=== PATIENT | female | born 1960 | race Caucasian/White ===

== ENCOUNTER 2017-11-28 15:59 | Inpatient (IN) ==
[2017-11-28] MEDS ORDERED: GLUCAGON 1 MG VIAL IM PRN (17:33)
[2017-11-28] MEDS ORDERED: DEXTROSE 50% 25 GM/50 ML VIAL IV PRN (17:33)
[2017-11-28] MEDS ORDERED: ALBUTEROL/IPRATROPIUM 3 ML NEB RESP TX PRN (18:20)
[2017-11-28] MEDS: ALBUTEROL/IPRATROPIUM 3 ML NEB RESP TX SCH (19:25)
[2017-11-28 20:44] LABS: % Iron Saturation 6.9 % (18-50)
[2017-11-28 20:46] LABS: Free T4 (Free Thyroxine) 1.16 NG/DL (0.76-1.46)
[2017-11-28 20:56] LABS: Folate 17.7 NG/ML (5.4-24.0)
[2017-11-28] MEDS: MEROPENEM 1,000 MG in SYRINGE 1 EACH IV SCH (21:47)
[2017-11-28] MEDS: INSULIN REGULAR 100 UNIT/ML SUBCUT SCH (21:48)
[2017-11-28] MEDS: FUROSEMIDE 20 MG/2 ML VIAL IV SCH (21:53)
[2017-11-28] MEDS: DEXTROSE 5% NACL 0.45% 1,000 ML IV SCH (23:02)
[2017-11-29 02:53] LABS: Apearance,Urine CLEAR (Clear); Bilirubin,Urine Negative (Negative); Blood, Urine Moderate mg/dL (Negative); Glucose,Urine (UA) Negative (Negative); Hyaline Casts,Urine 3 /LPF (0-3); Ketones,Urine Negative (Negative); Nitrite,Urine Negative (Negative); Protein,Urine Negative; RBC,Urine 3 /HPF (0-4); Squamous Epithelial Cell,Urine Occasional /HPF (0-10); Urine Color Yellow (Yellow); Urine Specific Gravity 1.005 (1.001-1.035); WBC,Urine 3 /HPF (0-6)
[2017-11-29 06:14] LABS: Basophils % 0.6 % (0.0-0.8); Eosinophils # 0.2 10*3/uL (0.0-0.87); Eosinophils % 4.9 % (0.00-10.9); Hematocrit 31.6 VOL% (35.7-47.0); Hemoglobin 10.6 GM/DL (12.0-16.0); Immature Granulocytes % 0.8 %; Immature Granulocytes Absolute 0.04 #; Lymphocytes # 1.5 10*3/uL (1.4-4.0); Mean Corpuscular HGB Conc 33.5 GM/DL (32-36); Mean Corpuscular Hemoglobin 30 PG (27-34); Mean Platelet Volume 11.2 FL (9.6-12.0); Monocytes # 0.5 10*3/uL (0.11-0.8); Monocytes % 9.4 % (1.7-12.7); Neutrophils # 2.6 10*3/uL (1.4-7.4); Neutrophils % 54.3 % (38.7-73.9); Platelet Count 84 T/CUMM (130-400); Red Blood Count 3.51 MC/CUMM (3.8-5.5); Red Cell Distribution Width 18.4 % (9.3-17.3); White Blood Count 4.9 T/CUMM (4-12)
[2017-11-29] MEDS: MEROPENEM 1,000 MG in SYRINGE 1 EACH IV SCH ×3 (06:25→21:22)
[2017-11-29] MEDS: FUROSEMIDE 20 MG/2 ML VIAL IV SCH ×2 (06:31→14:43)
[2017-11-29 06:44] LABS: Albumin 2.7 G/DL (3.4-5.0); Bilirubin,Total 1.2 MG/DL (0.2-1.0); Calcium 8.6 MG/DL (8.5-10.1); Osmolality,Calculated 283.1 MOS/KG (273-304); Potassium 2.6 MMOL/L (3.5-5.1); Total Protein 6.2 G/DL (6.4-8.3)
[2017-11-29 07:04] LABS: Hypochromasia 1+; Ovalocytes Slight; Platelet Estimate Decreased
[2017-11-29] MEDS: ALBUTEROL/IPRATROPIUM 3 ML NEB RESP TX SCH ×2 (08:09→19:37)
[2017-11-29] MEDS ORDERED: PROMETHAZINE 25 MG TABLET PO PRN (08:35)
[2017-11-29] MEDS ORDERED: DIAZEPAM 5 MG TABLET PO PRN (08:35)
[2017-11-29] MEDS ORDERED: oxyCODONE/ACETAMINOPHEN 5-325 MG TABLET PO PRN (08:35)
[2017-11-29] MEDS: INSULIN REGULAR 100 UNIT/ML SUBCUT SCH ×4 (08:49→21:12)
[2017-11-29] MEDS ORDERED: TRIAMTERENE/HCTZ 37.5-25 MG CAPSULE PO SCH ×2 (09:00→12:00)
[2017-11-29] MEDS ORDERED: CYANOCOBALAMIN 1000 MCG/1 ML VIAL IM SCH (09:00)
[2017-11-29] MEDS: POTASSIUM CHLORIDE 10 MEQ TABLET PO SCH ×3 (09:58→21:22)
[2017-11-29] MEDS: LACTOBACILLUS ACIDOPHILUS/BULGARICUS CAPLET PO SCH (09:58)
[2017-11-29] MEDS: MAGNESIUM CHLORIDE 64 MG TABLET PO SCH ×2 (09:58→21:22)
[2017-11-29] MEDS: COLESEVELAM 625 MG TABLET PO SCH ×3 (09:58→21:22)
[2017-11-29] MEDS: ASPIRIN EC 81 MG TABLET PO SCH (09:58)
[2017-11-29] MEDS: CHOLECALCIFEROL 1,000 UNIT TABLET PO SCH (09:58)
[2017-11-29] MEDS: PANTOPRAZOLE 40 MG TABLET PO SCH (09:58)
[2017-11-29] MEDS: OMEGA 3 ACID ETHYL ESTERS 1 GM CAPSULE PO SCH (09:59)
[2017-11-29 11:12] LABS: INR 1.2; PT Patient Result 12.4 SECS; Partial Thromboplastin Time 29.6 SECS (0-40)
[2017-11-29 12:35] LABS: Hepatitis A Ab IgM Quant 0.14 Index; Hepatitis A Ab IgM Result Negative (Negative); Hepatitis B Core IgM Quant 0.09 Index; Hepatitis B Core IgM Result Negative (Negative); Hepatitis B Surface Ag Quant 0.12 Index; Hepatitis B Surface Ag Result Negative (Negative); Hepatitis C Virus Ab Quant 0.04 Index; Hepatitis C Virus Ab Result Negative (Negative)
[2017-11-29] MEDS: LACTULOSE 20 GM/30 ML UDCUP PO SCH ×2 (14:43→21:21)
[2017-11-29] MEDS: POTASSIUM CHLORIDE 20 MEQ TABLET PO PRN ×2 (14:47→17:27)
[2017-11-29] MEDS ORDERED: FUROSEMIDE 20 MG/2 ML VIAL IV SCH (21:00)
[2017-11-29] MEDS: DEXTROSE 5% NACL 0.45% 1,000 ML IV SCH (21:20)
[2017-11-29] MEDS: GABAPENTIN 300 MG CAPSULE PO SCH (21:22)
[2017-11-29] MEDS: PARoxetine 20 MG TABLET PO SCH (21:23)
[2017-11-29] MEDS: DOXEPIN 25 MG CAPSULE PO SCH (21:25)
[2017-11-30] MEDS: POTASSIUM CHLORIDE 20 MEQ TABLET PO PRN ×2 (00:20→07:03)
[2017-11-30 06:17] LABS: Basophils % 0.6 % (0.0-0.8); Eosinophils # 0.3 10*3/uL (0.0-0.87); Eosinophils % 5.3 % (0.00-10.9); Hemoglobin 10.8 GM/DL (12.0-16.0); Immature Granulocytes % 0.6 %; Immature Granulocytes Absolute 0.03 #; Lymphocytes # 1.7 10*3/uL (1.4-4.0); Lymphocytes % 34.8 % (21.3-54.2); Mean Corpuscular HGB Conc 33.8 GM/DL (32-36); Mean Corpuscular Hemoglobin 30 PG (27-34); Mean Corpuscular Volume 88.9 FL (87-102); Mean Platelet Volume 11.2 FL (9.6-12.0); Monocytes # 0.5 10*3/uL (0.11-0.8); Monocytes % 10.3 % (1.7-12.7); Neutrophils # 2.4 10*3/uL (1.4-7.4); Neutrophils % 48.4 % (38.7-73.9); Red Cell Distribution Width 18.3 % (9.3-17.3); White Blood Count 4.9 T/CUMM (4-12)
[2017-11-30 06:24] LABS: Platelet Count 91 T/CUMM (130-400)
[2017-11-30 06:25] LABS: Calcium 8.7 MG/DL (8.5-10.1); Potassium 2.7 MMOL/L (3.5-5.1)
[2017-11-30] MEDS: MEROPENEM 1,000 MG in SYRINGE 1 EACH IV SCH ×3 (07:03→21:21)
[2017-11-30] MEDS: FUROSEMIDE 20 MG/2 ML VIAL IV SCH ×2 (07:03→08:58)
[2017-11-30 07:24] LABS: Hypochromasia 1+; Polychromasia Slight
[2017-11-30] MEDS: ALBUTEROL/IPRATROPIUM 3 ML NEB RESP TX SCH ×2 (07:35→19:26)
[2017-11-30] MEDS: LACTULOSE 20 GM/30 ML UDCUP PO SCH ×3 (08:40→21:22)
[2017-11-30] MEDS: PANTOPRAZOLE 40 MG TABLET PO SCH (08:40)
[2017-11-30] MEDS: MAGNESIUM CHLORIDE 64 MG TABLET PO SCH ×2 (08:40→21:23)
[2017-11-30] MEDS: LOSARTAN 25 MG TABLET PO SCH (08:40)
[2017-11-30] MEDS: LACTOBACILLUS ACIDOPHILUS/BULGARICUS CAPLET PO SCH (08:41)
[2017-11-30] MEDS: COLESEVELAM 625 MG TABLET PO SCH ×3 (08:41→21:24)
[2017-11-30] MEDS: POTASSIUM CHLORIDE 20 MEQ TABLET PO SCH ×3 (08:41→21:23)
[2017-11-30] MEDS: CHOLECALCIFEROL 1,000 UNIT TABLET PO SCH (08:41)
[2017-11-30] MEDS: OMEGA 3 ACID ETHYL ESTERS 1 GM CAPSULE PO SCH (08:41)
[2017-11-30] MEDS: INSULIN REGULAR 100 UNIT/ML SUBCUT SCH ×4 (08:55→21:24)
[2017-11-30] MEDS ORDERED: SPIRONOLACTONE 50 MG TABLET PO SCH (09:00)
[2017-11-30] MEDS: POTASSIUM CHLORIDE 10 MEQ TABLET PO SCH ×3 (12:29→21:23)
[2017-11-30] MEDS: DEXTROSE 5% NACL 0.45% 1,000 ML IV SCH (16:27)
[2017-11-30] MEDS: FUROSEMIDE 20 MG TABLET PO SCH (16:28)
[2017-11-30] MEDS: PARoxetine 20 MG TABLET PO SCH (21:23)
[2017-11-30] MEDS: DOXEPIN 25 MG CAPSULE PO SCH (21:23)
[2017-11-30] MEDS: GABAPENTIN 300 MG CAPSULE PO SCH (21:24)
[2017-12-01] MEDS: MEROPENEM 1,000 MG in SYRINGE 1 EACH IV SCH ×2 (06:13→15:41)
[2017-12-01] MEDS: DEXTROSE 5% NACL 0.45% 1,000 ML IV SCH (06:24)
[2017-12-01 06:40] LABS: Basophils % 0.4 % (0.0-0.8); Eosinophils # 0.3 10*3/uL (0.0-0.87); Eosinophils % 5.4 % (0.00-10.9); Hematocrit 35.1 VOL% (35.7-47.0); Hemoglobin 11.1 GM/DL (12.0-16.0); Immature Granulocytes Absolute 0.05 #; Lymphocytes # 1.6 10*3/uL (1.4-4.0); Mean Corpuscular HGB Conc 31.6 GM/DL (32-36); Mean Corpuscular Hemoglobin 29 PG (27-34); Mean Corpuscular Volume 92.6 FL (87-102); Mean Platelet Volume 10.9 FL (9.6-12.0); Monocytes # 0.4 10*3/uL (0.11-0.8); Monocytes % 8.9 % (1.7-12.7); Neutrophils # 2.5 10*3/uL (1.4-7.4); Neutrophils % 51.3 % (38.7-73.9); Platelet Count 92 T/CUMM (130-400); Red Blood Count 3.79 MC/CUMM (3.8-5.5); Red Cell Distribution Width 18.6 % (9.3-17.3); White Blood Count 4.8 T/CUMM (4-12)
[2017-12-01 06:57] LABS: Calcium 8.7 MG/DL (8.5-10.1); Osmolality,Calculated 287.7 MOS/KG (273-304); Potassium 3.9 MMOL/L (3.5-5.1)
[2017-12-01] MEDS: ALBUTEROL/IPRATROPIUM 3 ML NEB RESP TX SCH ×2 (07:07→19:01)
[2017-12-01] MEDS: INSULIN REGULAR 100 UNIT/ML SUBCUT SCH ×4 (07:24→20:33)
[2017-12-01] MEDS: LOSARTAN 25 MG TABLET PO SCH ×2 (07:48→10:56)
[2017-12-01] MEDS: MAGNESIUM CHLORIDE 64 MG TABLET PO SCH ×3 (07:48→20:31)
[2017-12-01] MEDS: LACTULOSE 20 GM/30 ML UDCUP PO SCH ×4 (07:48→20:31)
[2017-12-01] MEDS: SPIRONOLACTONE 50 MG TABLET PO SCH ×2 (07:49→10:55)
[2017-12-01] MEDS: POTASSIUM CHLORIDE 10 MEQ TABLET PO SCH ×4 (07:49→20:31)
[2017-12-01] MEDS: CHOLECALCIFEROL 1,000 UNIT TABLET PO SCH ×2 (07:49→10:56)
[2017-12-01] MEDS: LACTOBACILLUS ACIDOPHILUS/BULGARICUS CAPLET PO SCH ×2 (07:49→10:55)
[2017-12-01] MEDS: FUROSEMIDE 20 MG TABLET PO SCH ×2 (07:49→15:51)
[2017-12-01] MEDS: OMEGA 3 ACID ETHYL ESTERS 1 GM CAPSULE PO SCH ×2 (07:49→10:56)
[2017-12-01] MEDS: COLESEVELAM 625 MG TABLET PO SCH ×4 (07:50→20:30)
[2017-12-01] MEDS: PANTOPRAZOLE 40 MG TABLET PO SCH ×2 (07:50→10:56)
[2017-12-01 09:19] LABS: Hypochromasia 1+; Polychromasia Slight
[2017-12-01] MEDS: LEVOFLOXACIN INJ 500 MG in PREMIX 1 EACH IV SCH (15:50)
[2017-12-01] MEDS: DOXEPIN 25 MG CAPSULE PO SCH (20:30)
[2017-12-01] MEDS: GABAPENTIN 300 MG CAPSULE PO SCH (20:31)
[2017-12-01] MEDS: PARoxetine 20 MG TABLET PO SCH (20:31)
[2017-12-02] MEDS: DEXTROSE 5% NACL 0.45% 1,000 ML IV SCH ×2 (05:28→18:31)
[2017-12-02 05:45] LABS: Basophils # 0.1 10*3/uL (0.0-0.2); Basophils % 0.8 % (0.0-0.8); Eosinophils # 0.4 10*3/uL (0.0-0.87); Eosinophils % 5.5 % (0.00-10.9); Hematocrit 35.4 VOL% (35.7-47.0); Hemoglobin 11.1 GM/DL (12.0-16.0); Immature Granulocytes % 0.9 %; Immature Granulocytes Absolute 0.06 #; Lymphocytes # 2.3 10*3/uL (1.4-4.0); Lymphocytes % 35.4 % (21.3-54.2); Mean Corpuscular HGB Conc 31.4 GM/DL (32-36); Mean Corpuscular Hemoglobin 30 PG (27-34); Mean Corpuscular Volume 96.5 FL (87-102); Mean Platelet Volume 10.9 FL (9.6-12.0); Monocytes # 0.5 10*3/uL (0.11-0.8); Monocytes % 7.9 % (1.7-12.7); Neutrophils # 3.2 10*3/uL (1.4-7.4); Neutrophils % 49.5 % (38.7-73.9); Red Blood Count 3.67 MC/CUMM (3.8-5.5); Red Cell Distribution Width 18.6 % (9.3-17.3); White Blood Count 6.4 T/CUMM (4-12)
[2017-12-02 05:51] LABS: Platelet Count 99 T/CUMM (130-400)
[2017-12-02 06:05] LABS: Hypochromasia 1+; Microcytosis 1+
[2017-12-02 06:06] LABS: Platelet Estimate Decreased
[2017-12-02 06:14] LABS: Calcium 8.2 MG/DL (8.5-10.1); Potassium 3.9 MMOL/L (3.5-5.1)
[2017-12-02] MEDS: ALBUTEROL/IPRATROPIUM 3 ML NEB RESP TX SCH ×2 (07:28→20:10)
[2017-12-02] MEDS: INSULIN REGULAR 100 UNIT/ML SUBCUT SCH ×4 (08:07→21:05)
[2017-12-02] MEDS ORDERED: LOSARTAN 50 MG TABLET PO SCH (09:22)
[2017-12-02] MEDS: CHOLECALCIFEROL 1,000 UNIT TABLET PO SCH (09:31)
[2017-12-02] MEDS: LACTOBACILLUS ACIDOPHILUS/BULGARICUS CAPLET PO SCH (09:31)
[2017-12-02] MEDS: MAGNESIUM CHLORIDE 64 MG TABLET PO SCH ×2 (09:31→20:57)
[2017-12-02] MEDS: PANTOPRAZOLE 40 MG TABLET PO SCH (09:31)
[2017-12-02] MEDS: POTASSIUM CHLORIDE 10 MEQ TABLET PO SCH ×3 (09:31→20:57)
[2017-12-02] MEDS: OMEGA 3 ACID ETHYL ESTERS 1 GM CAPSULE PO SCH (09:31)
[2017-12-02] MEDS: ASPIRIN EC 81 MG TABLET PO SCH (09:32)
[2017-12-02] MEDS: SPIRONOLACTONE 50 MG TABLET PO SCH (09:32)
[2017-12-02] MEDS: COLESEVELAM 625 MG TABLET PO SCH ×3 (09:32→20:56)
[2017-12-02] MEDS: FUROSEMIDE 20 MG TABLET PO SCH ×2 (09:32→16:43)
[2017-12-02] MEDS: LACTULOSE 20 GM/30 ML UDCUP PO SCH ×3 (09:33→20:57)
[2017-12-02] MEDS: LOSARTAN 25 MG TABLET PO SCH (11:03)
[2017-12-02] MEDS: LEVOFLOXACIN INJ 500 MG in PREMIX 1 EACH IV SCH (16:40)
[2017-12-02] MEDS: DOXEPIN 25 MG CAPSULE PO SCH (20:57)
[2017-12-02] MEDS: PARoxetine 20 MG TABLET PO SCH (20:57)
[2017-12-02] MEDS: GABAPENTIN 300 MG CAPSULE PO SCH (20:57)
[2017-12-03] MEDS: INSULIN REGULAR 100 UNIT/ML SUBCUT SCH ×2 (07:49→13:17)
[2017-12-03] MEDS: ALBUTEROL/IPRATROPIUM 3 ML NEB RESP TX SCH (07:52)
[2017-12-03] MEDS: CHOLECALCIFEROL 1,000 UNIT TABLET PO SCH (08:57)
[2017-12-03] MEDS: LACTULOSE 20 GM/30 ML UDCUP PO SCH (08:57)
[2017-12-03] MEDS: OMEGA 3 ACID ETHYL ESTERS 1 GM CAPSULE PO SCH (08:57)
[2017-12-03] MEDS: ASPIRIN EC 81 MG TABLET PO SCH (08:58)
[2017-12-03] MEDS: PANTOPRAZOLE 40 MG TABLET PO SCH (08:58)
[2017-12-03] MEDS: COLESEVELAM 625 MG TABLET PO SCH (08:58)
[2017-12-03] MEDS: POTASSIUM CHLORIDE 10 MEQ TABLET PO SCH (08:58)
[2017-12-03] MEDS: FUROSEMIDE 20 MG TABLET PO SCH (08:58)
[2017-12-03] MEDS: LACTOBACILLUS ACIDOPHILUS/BULGARICUS CAPLET PO SCH (08:58)
[2017-12-03] MEDS: MAGNESIUM CHLORIDE 64 MG TABLET PO SCH (08:58)
[2017-12-03] MEDS: SPIRONOLACTONE 50 MG TABLET PO SCH (08:58)
[2017-12-03] MEDS: DEXTROSE 5% NACL 0.45% 1,000 ML IV SCH (08:59)
[2017-12-03 12:39] VITALS: BP 135/94
== END 2017-12-03 14:05 | disposition home or self-care (01) | DRG 948 ==
LOC: N.5E 18:56
PROVIDERS: ADMIT Internal Medicine Pulmonary Disease; ATTEND Internal Medicine Pulmonary Disease